=== PATIENT | female | born 1960 | race Caucasian/White ===

== ENCOUNTER 2017-11-05 14:00 | Outpatient (CLI) | payer OTHER ==
[2017-11-05] MEDS ORDERED: Iopamidol 370 76% 100 ML VIAL ONE (16:28)
== END 2017-11-05 14:01 | disposition home or self-care (01) ==
LOC: BICCT 14:00
PROVIDERS: ATTEND Internal Medicine Medical Oncology
DX: I26.99 Other pulmonary embolism without acute cor pulmonale (principal)
CPT/HCPCS: 71275

== ENCOUNTER 2019-02-09 16:18 | Outpatient (CLI) | payer OTHER ==
--- NOTE | 2019-02-09 16:50 | MMO ---
Bilateral MAMMO Bilat Screen [facility]. CLINICAL HISTORY: Patient is 58 years old and is seen for screening. The patient has the following family history of breast cancer: maternal grandmother, at age 70. The patient has a history of gi cancer at age 43. VIEWS: The views performed were: bilateral craniocaudal with tomosynthesis; bilateral mediolateral oblique with tomosynthesis; and bilateral exaggerated craniocaudal. FILMS COMPARED: The present examination has been compared to prior imaging studies performed at [facility] on 08/21/2013, 03/25/2016 and 04/12/2017. MAMMOGRAM FINDINGS: There are scattered fibroglandular densities. There are stable benign appearing calcifications seen in both breasts. There are also vascular calcifications. There are no suspicious masses, suspicious calcifications, or new areas of architectural distortion. IMPRESSION: THERE IS NO MAMMOGRAPHIC EVIDENCE OF MALIGNANCY. A ROUTINE FOLLOW-UP MAMMOGRAM IN 1 YEAR IS RECOMMENDED. THE RESULTS OF THIS EXAM WERE SENT TO THE PATIENT. ACR BI-RADS Category 2 - Benign finding MAMMOGRAPHY NOTE: 1. A negative mammogram report should not delay a biopsy if a dominant of clinically suspicious mass is present. 2. Approximately 10% to 15% of breast cancers are not detected by mammography. 3. Adenosis and dense breasts may obscure an underlying neoplasm. Reported by: JULIA ANDINO MD Electonically Signed: [id number]
== END 2019-02-09 16:19 | disposition home or self-care (01) ==
LOC: BICMAMMO 16:18
PROVIDERS: ATTEND Specialist
DX: Z12.31 Encounter for screening mammogram for malignant neoplasm of breast (principal); Z80.3 Family history of malignant neoplasm of breast; Z85.00 Personal history of malignant neoplasm of unspecified digestive organ
CPT/HCPCS: 77063; 77067

== ENCOUNTER 2019-05-27 17:24 | Emergency (ER) | payer OTHER ==
[2019-05-27] MEDS ORDERED: Ketorolac Tromethamine 60 MG/2 ML VIAL ONE (17:34)
[2019-05-27 17:57] LABS: #Eosinphils 0.2 thou/uL (0.0-0.7); #Lymphocytes 1.6 thou/uL (1.20-3.40); #Monocytes 0.3 thou/uL (0.11-0.59); #Neutrophils 2.1 thou/uL (1.40-6.50); %Basophils 0.5 % (0.0-1.0); %Eosinophils 4.5 % (0.0-10.0); %Lymphocytes 37.9 % (21.0-51.0); %Monocytes 7.5 % (0.0-10.0); %Neutrophils 49.6 % (42.0-75.0); Anisocytosis SLIGHT = 6-15 cells (100X) (0-5/hpf); Hemoglobin 7.5 g/dL (12.0-16.0); Hypochromia SLIGHT = 6-15 cells (100X) (0-5/hpf); MDiff Complete? YES; Macrocytosis SLIGHT = 6-15 cells (100X) (0-5/hpf); Mean Corpuscular HGB CONC 31.7 g/dL (32.0-36.0); Mean Corpuscular Hemoglobin 34.7 pg (27.0-31.0); Mean Platelet Volume 5.8 fL (7.4-10.4); Platelet Count 264 thou/uL (130-400); Platelet Morphology Comment Appears Adequate; RBC Distribution Width 16.1 % (11.5-14.5); Red Blood Cell (RBC) Count 2.15 mill/uL (4.20-5.40); White Blood Cell (WBC) Count 4.3 thou/uL (4.8-10.8)
--- NOTE | 2019-05-27 17:57 | RAD ---
LEFT ELBOW TWO VIEWS: 05/27/19 HISTORY: Elbow pain and redness. Small olecranon spurs seen. There is no signs of fracture or joint effusion. Minimal spurring of the coronoid process. IMPRESSION: Minimal arthritic changes of the elbow. POS: [facility]
[2019-05-27 18:06] LABS: ALT (SGPT) 16 U/L (8-55); AST (SGOT) 21 U/L (5-34); Albumin 3.7 g/dL (3.5-5.0); Alkaline Phosphatase 54 U/L (40-110); Anion Gap 13 mmol/L (10-20); BUN (Urea Nitrogen) 10 mg/dL (9.8-20.1); Bilirubin, Total 0.2 mg/dL (0.2-1.2); CRP (Inflammatory) Less than 0.50 mg/dL (= or < 0.5); Calc. Creatinine Clearance 0 mL/min (70-130); Calcium 8.7 mg/dL (7.8-10.44); Carbon Dioxide 29 mmol/L (22-29); Chloride 105 mmol/L (98-107); Estimated GFR-MDRD 58; Globulin 2.3 g/dL (2.4-3.5); Glucose 142 mg/dL (70-105); Sodium 144 mmol/L (136-145)
[2019-05-27 18:07] LABS: Potassium 2.5 mmol/L (3.5-5.1)
[2019-05-27] MEDS ORDERED: Potassium Chloride 20 MEQ TAB ONE (18:13)
--- NOTE | 2019-05-27 19:01 | ULT ---
LEFT UPPER EXTREMITY VENOUS DUPLEX EXAM: 05/27/19 HISTORY: Left arm swelling. Real time color Doppler evaluation of the left upper extremity included evaluation of the left general internist al jugular, subclavian, axillary, brachial, basilic and cephalic veins. This shows superficial thrombus within both the basilic and cephalic veins. No evidence of deep vein thrombus. IMPRESSION: Superficial thrombus in both the cephalic and basilic veins. POS: [facility]
== END 2019-05-27 19:07 | disposition home or self-care (01) ==
LOC: SCSER 17:24
DX: M25.422 Effusion, left elbow (principal); I10 Essential (primary) hypertension; F32.9 Major depressive disorder, single episode, unspecified; Z79.899 Other long term (current) drug therapy
CPT/HCPCS: 36415; 80053; 85025; 85652; 86140; J1885

== ENCOUNTER 2019-06-21 13:10 | Day surgery (SDC) | payer OTHER ==
[2019-06-21] MEDS ORDERED: diphenhydrAMINE 25 MG CAP PO SCH (16:30)
[2019-06-21] MEDS ORDERED: Acetaminophen 500 MG TAB PO SCH (16:30)
[2019-06-21 18:27] VITALS: BMI 32.2
[2019-06-21 23:04] VITALS: BP 165/85; TEMP 97.7
== END 2019-06-21 23:06 | disposition home or self-care (01) ==
LOC: ONC/OP 13:10 → ONC 13:11 → ONC/OP 23:06
PROVIDERS: ATTEND Specialist
DX: D64.9 Anemia, unspecified (principal); Z88.2 Allergy status to sulfonamides
CPT/HCPCS: 36430; 86850; 86900; 86901; P9016; Q0163

== ENCOUNTER 2019-09-25 14:03 | Outpatient (CLI) | payer OTHER ==
--- NOTE | 2019-09-25 14:39 | MMO ---
Left Breast MAMMO Unilat Diag [facility]RODNEY. CLINICAL HISTORY: Patient is 58 years old and is seen for diagnostic exam and lump or thickening in the left breast at 2 o'clock. The patient has the following family history of breast cancer: maternal grandmother, at age 70. The patient has a history of gi cancer at age 43. VIEWS: The views performed were: left craniocaudal with tomosynthesis; left mediolateral oblique with tomosynthesis; left mediolateral with tomosynthesis; and left exaggerated craniocaudal with tomosynthesis. FILMS COMPARED: The present examination has been compared to prior imaging studies performed at [facility] on 03/25/2016, 04/12/2017, 02/09/2019 and 09/25/2019. This study has been interpreted with the assistance of computer-aided detection. MAMMOGRAM FINDINGS: There are scattered fibroglandular densities. There are benign appearing calcifications in the left breast. NO mass is seen on mammo or US at the site of palpable concern (2:00) There are no suspicious masses, suspicious calcifications, or new areas of architectural distortion. IMPRESSION: THERE IS NO MAMMOGRAPHIC EVIDENCE OF MALIGNANCY. A ROUTINE FOLLOW-UP MAMMOGRAM IN 1 YEAR IS RECOMMENDED. THE RESULTS OF THIS EXAM WERE SENT TO THE PATIENT. ACR BI-RADS Category 2 - Benign finding MAMMOGRAPHY NOTE: 1. A negative mammogram report should not delay a biopsy if a dominant of clinically suspicious mass is present. 2. Approximately 10% to 15% of breast cancers are not detected by mammography. 3. Adenosis and dense breasts may obscure an underlying neoplasm. Reported by: ADRIANA MONTAÑO MD Electonically Signed: [id number]
--- NOTE | 2019-09-25 14:53 | ULT ---
LEFT BREAST ULTRASOUND: HISTORY: Left breast mass at 2 o'clock position. FINDINGS: Correlation is made with mammogram of the same date. Sonographic evaluation of the region of palpable concern at the 2 o'clock position demonstrates no ab normality or mass. IMPRESSION: 1. BIRADS category 2 - benign findings. Return for annual mammographic screening. 2. Further evaluation (including biopsy) of the region of palpable concern should be based on clinic al findings/suspicion. POS: [facility]
== END 2019-09-25 14:04 | disposition home or self-care (01) ==
LOC: BICMAMMO 14:03
PROVIDERS: ATTEND Internal Medicine Medical Oncology
DX: N63.21 Unspecified lump in the left breast, upper outer quadrant (principal)
CPT/HCPCS: G0279

== ENCOUNTER 2025-03-12 06:37 | Day surgery (SDC) | payer BC ==
[2025-03-09 15:06] VITALS: BMI 29.9
[2025-03-12] MEDS ORDERED: PROPOFOL 40 ML ONE (08:27)
[2025-03-12] MEDS ORDERED: PROPOFOL 20 ML ONE ×2 (08:55→08:56)
[2025-03-12 10:48] LABS: Hematocrit 22.1 % (36.0-47.0); Hemoglobin 7.1 g/dL (12.0-16.0)
[2025-03-14 12:05] LABS: EliA Celiac New Method **** NEW METHOD ****
== END 2025-03-12 11:32 | disposition home or self-care (01) ==
LOC: SDC 06:37
PROVIDERS: ATTEND Internal Medicine Gastroenterology
DX: D12.2 Benign neoplasm of ascending colon (principal); D12.6 Benign neoplasm of colon, unspecified; K63.5 Polyp of colon; K21.9 Gastro-esophageal reflux disease without esophagitis; D50.9 Iron deficiency anemia, unspecified; K31.811 Angiodysplasia of stomach and duodenum with bleeding; I10 Essential (primary) hypertension; Z86.0100 Personal history of colon polyps, unspecified; Z90.710 Acquired absence of both cervix and uterus; Z88.2 Allergy status to sulfonamides; Z79.899 Other long term (current) drug therapy
CPT/HCPCS: 36415; 83516; 85014; 85018; 88305; J2704